=== PATIENT | male | born 1965 | race African-American/Black ===

== ENCOUNTER 2020-03-25 18:48 | Emergency (ER) | payer BC ==
[~2020-03-25] VITALS: Ht 180.3 cm; Wt 105.0 kg
[2020-03-25 18:58] VITALS: BP 122/77
[2020-03-25 22:31] LABS: BASOPHILS % 0.4 % (0.0-2.0); EOSINOPHILS % 0.9 % (0.0-5.0); HEMATOCRIT. 39.8 % (42.0-52.0); HEMOGLOBIN. 13.8 g/dL (14.0-18.0); LYMPHOCYTES % 25.7 % (20.0-50.0); MEAN CORPUSCULAR HEMOGLOBIN 31.3 pg (28.0-32.0); MEAN CORPUSCULAR VOLUME 90.3 fL (80.0-94.0); MEAN PLATELET VOLUME 9.5 fl (7.4-10.4); MONOCYTES % 15.5 % (2.0-8.0); NEUTROPHILS % 57.5 % (40.0-76.0); PLATELET 228 x1000/uL (130-400); RED BLOOD CELL COUNT 4.41 mill/uL (4.7-6.1)
[2020-03-25 22:36] LABS: CHLORIDE 103 mEq/L (98-107)
[2020-03-25] MEDS: KETOROLAC 30MG/ML VIAL IV NR ×2 (23:49→23:50)
== END 2020-03-26 00:03 | disposition home or self-care (01) ==
LOC: ER 18:48
DX: R05 Cough (principal); Z11.59 Encounter for screening for other viral diseases; I10 Essential (primary) hypertension; B20 Human immunodeficiency virus [HIV] disease
CPT/HCPCS: 36415; 71045; 80053; 83880; 84484; 85025; 93005; 96374; 99285; C9803; J1885; U0003